=== PATIENT | male | born 1955 | race Caucasian/White ===

== ENCOUNTER 2019-03-01 08:15 | Observation (INO) | payer OTHER ==
[~2019-03-01] VITALS: Ht 170.2 cm; Wt 89.8 kg
[~2019-03-01 08:15] MED LIST: ASPI81EC PO; BCOIRO PO; CYCL10 PO; DOCU100 PO; FLUO20 PO; GABA100 PO; GEMF600 PO; HYDACE10B PO; LORA10 PO; LOSHYD PO; MECL25 PO; MOME220I IH; NAPR250 PO; OMEP20ER PO; PRAZ2 PO; ROPI.25 PO; VARDENAFIL HCL
[2019-03-01] MEDS ORDERED: COMBIVENT RESPIM4 GM INH (08:49)
[2019-03-01] MEDS ORDERED: ATOR10 PO (08:50)
[2019-03-01] MEDS ORDERED: BUPR150ER PO (08:51)
[2019-03-01] MEDS ORDERED: FERSU300 PO (08:52)
[2019-03-01] MEDS ORDERED: FENOFIBRATE48 MG PO (08:52)
[2019-03-01] MEDS ORDERED: DOCU100 PO (08:52)
[2019-03-01] MEDS ORDERED: Calcium Carbon650 MG PO (08:52)
[2019-03-01 08:53] LABS: BASOPHILS ABSOLUTE AUTO 0.04 K/mm3 (0.00-0.23); BASOPHILS PERCENT AUTO 1 % (0-2); EOSINOPHILS ABSOLUTE AUTO 0.22 K/mm3 (0.00-0.68); EOSINOPHILS PERCENT AUTO 4 % (0-6); Hematocrit 40.3 % (37.0-53.0); Hemoglobin 12.9 g/dL (13.5-17.5); IMMATURE GRAN ABSOLUTE AUTO 0.02 K/mm3 (0.00-0.10); IMMATURE GRAN PERCENT AUTO 0 % (0-1); LYMPHOCYTES ABSOLUTE AUTO 1.57 K/mm3 (0.84-5.20); LYMPHOCYTES PERCENT AUTO 25 % (21-46); MONOCYTES ABSOLUTE AUTO 0.53 K/mm3 (0.16-1.47); MONOCYTES PERCENT AUTO 8 % (4-13); Mean Corpuscular HGB 29.9 pg (26.0-34.0); Mean Corpuscular Volume 94 fL (80-100); Mean Platelet Volume 9.4 fL (9.1-12.4); NEUTROPHILS PERCENT AUTO 62 % (41-73); Platelet Count 218 K/mm3 (150-400); RDW Coefficient Variation 13.5 % (11.7-14.2); RDW Standard Deviation 46.6 fL (35.1-46.3); Red Blood Cell Count 4.31 M/mm3 (4.30-5.90); White Blood Cell Count 6.28 K/mm3 (4.00-11.30)
[2019-03-01] MEDS ORDERED: Flonase 0.05% N16 GM (08:53)
[2019-03-01] MEDS ORDERED: GABA300 PO (08:53)
[2019-03-01] MEDS ORDERED: LOSARTAN-HCTZ1 EACH PO ×2 (08:54→11:46)
[2019-03-01] MEDS ORDERED: Hydroxyzine HCl50 MG PO (08:54)
[2019-03-01] MEDS ORDERED: METF500 PO (08:55)
[2019-03-01] MEDS ORDERED: CLARITIN10 MG PO (08:55)
[2019-03-01] MEDS ORDERED: OMEPRAZOLE20 MG PO (08:55)
[2019-03-01] MEDS ORDERED: ROPI.25 PO (08:56)
[2019-03-01] MEDS ORDERED: SERT100 PO (08:56)
[2019-03-01] MEDS ORDERED: SILD50TA PO (08:56)
[2019-03-01] MEDS ORDERED: SINUS RINSE ST1 EACH (08:57)
[2019-03-01] MEDS ORDERED: TAMS.4ER PO (08:57)
[2019-03-01 09:08] LABS: International Normalized Ratio 0.98; Prothrombin Time Results 10.4 Sec (9.7-11.5)
[2019-03-01 09:15] LABS: Alanine Aminotransfer (ALT/SGP 19 U/L (12-78); Albumin, Blood 3.5 g/dL (3.4-5.0); Alk Phos 78 U/L (50-136); Anion Gap 4 mmol/L (6-16); Aspartate Aminotrans (AST/SGOT 15 U/L (12-37); Bilirubin, Total 0.2 mg/dL (0.1-1.0); Blood Urea Nitrogen 12 mg/dL (8-24); CO2, Blood 29 mmol/L (21-32); Calcium, Blood 9.2 mg/dL (8.5-10.1); Chloride, Blood 105 mmol/L (98-108); Creatinine, Blood 0.86 mg/dL (0.60-1.20); Globulin, Blood 3.6 g/dL (2.2-4.0); Glomerular Filtration Rate >60 (60-); Glucose, Blood 189 mg/dL (70-99); Sodium, Blood 138 mmol/L (136-145); Total Protein, Blood 7.1 g/dL (6.4-8.2)
[2019-03-01] MEDS ORDERED: Norco 10-325 T1 EACH PO (11:46)
--- NOTE | 2019-03-01 13:48 | NUR ---
Echocardiogram completed.
--- NOTE | 2019-03-01 14:01 | NUR ---
PT TO ROOM FROM ED. SHOWS NO SIGNS OF WEAKNESS. STRONG BILAT [employer] STRENGTH AND FOOT PUMPS. PERRLA. REPORTS NO FEELING OF WEAKNESS, NO N/T, SOB, OR CP. PT ORIENTED TO AND CALL LIGHT. PT A/OX4.
--- NOTE | 2019-03-01 17:46 | NUR ---
SHIFT SUMMARY PT TO SURGICAL FLOOR TODAY FROM ER. HAS REPORTED NO PAIN OR OTHER UNUSUAL SYMPTOMS. PT IND IN RM. WORKED WITH OT TODAY. OT REPORTS NO CONCERNS. PT TOLERATING FOOD AND LIQUIDS AND IS VOIDING. BEEN ASSISTED WITH ADL'S PRN.
[2019-03-02 05:29] LABS: LDL/HDL RATIO 2.2; Very Low Density Lipoprot Chol 39 mg/dL (6-32)
[2019-03-02 05:30] LABS: CHOL/HDL RATIO 4.5; Cholesterol 135 mg/dL (50-200); HDL Cholesterol 30 mg/dL (>39); Low Density Lipoprotein Chol 66 mg/dL (0-110); Triglycerides 195 mg/dL (30-160)
--- NOTE | 2019-03-02 06:04 | NUR ---
PT A/O x4. VSS. No complaints of pain or weakness. Patient states "I feel much better than earlier" Slept comfortably throughout night. Medicated as ordered.
--- NOTE | 2019-03-02 07:45 | NUR ---
pt amb in hallway with physical therapy
--- NOTE | 2019-03-02 07:50 | NUR ---
pt done with therapy sitting on edge of the bed stated no h/a no facial droop no r sided weakness + neuro check pt wanting to know if he can go home
--- NOTE | 2019-03-02 08:34 | NUR ---
pt eating breakfast meds given as sched
--- NOTE | 2019-03-02 10:58 | NUR ---
speech therapy by to see pt
--- NOTE | 2019-03-02 12:15 | NUR ---
dr koo by to see pt ok to discharge home
[2019-03-02] MEDS ORDERED: ASPI81CH PO (12:41)
--- NOTE | 2019-03-02 13:15 | NUR ---
DISCAHRGE INSTRUCTIONS REVIEWED WITH PT VERBALIZED RX GIVEN NO ACUTE CHANGES
--- NOTE | 2019-03-02 13:20 | NUR ---
AMB TO [facility]
== END 2019-03-02 13:28 | disposition home or self-care (01) ==
LOC: ER 08:15 → SURS 08:16
PROVIDERS: Nurse Practitioner Acute Care; Physician Assistant; ADMIT Hospitalist
DX: G45.9 Transient cerebral ischemic attack, unspecified (principal); I10 Essential (primary) hypertension; E11.9 Type 2 diabetes mellitus without complications; J44.9 Chronic obstructive pulmonary disease, unspecified; K21.9 Gastro-esophageal reflux disease without esophagitis; D50.9 Iron deficiency anemia, unspecified; N40.0 Benign prostatic hyperplasia without lower urinary tract symptoms; G25.81 Restless legs syndrome; F41.1 Generalized anxiety disorder; F32.9 Major depressive disorder, single episode, unspecified; F17.210 Nicotine dependence, cigarettes, uncomplicated; Z86.73 Personal history of transient ischemic attack (TIA), and cerebral infarction without residual deficits; Z79.899 Other long term (current) drug therapy; Z79.51 Long term (current) use of inhaled steroids; Z88.8 Allergy status to other drugs, medicaments and biological substances; Z88.5 Allergy status to narcotic agent; Z98.890 Other specified postprocedural states; W19.XXXA Unspecified fall, initial encounter
CPT/HCPCS: 36415; 70450; 70496; 70498; 80053; 80061; 82607; 82947; 85025; 85610; 92610; 93005; 93010; 93306; 96360-59; 96372; 97110; 97161; 97165; 97530; 99285-25; G0378; J1650; J7030; Q9967

== ENCOUNTER 2020-02-06 08:19 | Emergency (ER) | payer OTHER ==
[~2020-02-06] VITALS: Ht 170.2 cm; Wt 88.5 kg
[~2020-02-06 08:19] MED LIST changes: +ASPI81CH PO; +ATOR10 PO; +BUPR150ER PO; +CLARITIN10 MG PO; +COMBIVENT RESPIM4 GM INH; +Calcium Carbon650 MG PO; +FENOFIBRATE48 MG PO; +FERSU300 PO; +Flonase 0.05% N16 GM; +GABA300 PO; +Hydroxyzine HCl50 MG PO; +LOSARTAN-HCTZ1 EACH PO; +METF500 PO; +Norco 10-325 T1 EACH PO; +OMEPRAZOLE20 MG PO; +SERT100 PO; +SILD50TA PO; +SINUS RINSE ST1 EACH; +TAMS.4ER PO
[2020-02-06] MEDS ORDERED: COMBIVENT RESPIM4 G1 (08:44)
[2020-02-06] MEDS ORDERED: CYAN500 PO (08:45)
[2020-02-06] MEDS ORDERED: ASPI81CH PO (08:45)
[2020-02-06] MEDS ORDERED: ATOR20 PO (08:45)
[2020-02-06] MEDS ORDERED: BUPR150ER PO (08:45)
[2020-02-06] MEDS ORDERED: DOCU100 PO (08:48)
[2020-02-06] MEDS ORDERED: FENO48 PO (08:50)
[2020-02-06] MEDS ORDERED: FERSU300 PO (08:50)
[2020-02-06] MEDS ORDERED: GABA300 PO (08:51)
[2020-02-06] MEDS ORDERED: FLONASE SENSIM5.9 M1 (08:51)
[2020-02-06] MEDS ORDERED: LOSARTAN-HCTZ1 EAC3 PO (08:52)
[2020-02-06] MEDS ORDERED: HYDR1TAB94 PO (08:53)
[2020-02-06] MEDS ORDERED: HYDPAM50 PO (08:53)
[2020-02-06] MEDS ORDERED: OMEP20ER PO (08:54)
[2020-02-06] MEDS ORDERED: METF500 PO (08:54)
[2020-02-06] MEDS ORDERED: CENTRUM SILVER1 EAC2 (08:54)
[2020-02-06] MEDS ORDERED: Loratadine10 MG PO (08:54)
[2020-02-06] MEDS ORDERED: ROPI.25 PO (08:55)
[2020-02-06] MEDS ORDERED: SILD50TA PO (08:55)
[2020-02-06] MEDS ORDERED: TAMS.4ER PO (08:55)
[2020-02-06] MEDS ORDERED: KETO10 PO (09:14)
== END 2020-02-06 10:23 | disposition home or self-care (01) ==
LOC: ER 08:19
DX: S29.011A Strain of muscle and tendon of front wall of thorax, initial encounter (principal); I10 Essential (primary) hypertension; E78.00 Pure hypercholesterolemia, unspecified; J44.9 Chronic obstructive pulmonary disease, unspecified; N40.0 Benign prostatic hyperplasia without lower urinary tract symptoms; E11.40 Type 2 diabetes mellitus with diabetic neuropathy, unspecified; K21.9 Gastro-esophageal reflux disease without esophagitis; F17.210 Nicotine dependence, cigarettes, uncomplicated; Z79.899 Other long term (current) drug therapy; Z79.82 Long term (current) use of aspirin; Z79.84 Long term (current) use of oral hypoglycemic drugs; Z88.5 Allergy status to narcotic agent; Z88.8 Allergy status to other drugs, medicaments and biological substances; Z86.73 Personal history of transient ischemic attack (TIA), and cerebral infarction without residual deficits; X50.0XXA Overexertion from strenuous movement or load, initial encounter
CPT/HCPCS: 36415; 84484; 93005; 93010; 96374; 99284-25; J1885

== ENCOUNTER 2020-03-16 16:16 | Inpatient (IN) | payer OTHER, MEDICARE ==
[~2020-03-16] VITALS: Ht 170.2 cm; Wt 83.0 kg
[~2020-03-16 16:16] MED LIST changes: +ATOR20 PO; +Aspirin EC81 MG PO; +COMBIVENT RESPIM4 G1; +CYAN500 PO; +FENO48 PO; +FLONASE ALLERG9.9 M2; +HYDPAM50 PO; +HYDR1TAB94 PO; +KETO10 PO; +LOSARTAN-HCTZ1 EAC3 PO; +Loratadine10 MG PO; +MULTI VITAMIN1 EACH PO
[2020-03-16 17:09] LABS: BASOPHILS ABSOLUTE AUTO 0.08 K/mm3 (0.00-0.23); BASOPHILS PERCENT AUTO 1 % (0-2); EOSINOPHILS ABSOLUTE AUTO 0.09 K/mm3 (0.00-0.68); EOSINOPHILS PERCENT AUTO 1 % (0-6); Hematocrit 47.2 % (37.0-53.0); Hemoglobin 14.4 g/dL (13.5-17.5); IMMATURE GRAN ABSOLUTE AUTO 0.05 K/mm3 (0.00-0.10); IMMATURE GRAN PERCENT AUTO 0 % (0-1); LYMPHOCYTES ABSOLUTE AUTO 1.08 K/mm3 (0.84-5.20); LYMPHOCYTES PERCENT AUTO 8 % (21-46); MONOCYTES ABSOLUTE AUTO 0.82 K/mm3 (0.16-1.47); MONOCYTES PERCENT AUTO 6 % (4-13); Mean Corpuscular HGB 30.8 pg (26.0-34.0); Mean Corpuscular HGB Conc 30.5 g/dL (31.5-36.5); Mean Corpuscular Volume 101 fL (80-100); Mean Platelet Volume 9.9 fL (9.1-12.4); NEUTROPHILS ABSOLUTE AUTO 10.88 K/mm3 (1.96-9.15); NEUTROPHILS PERCENT AUTO 84 % (41-73); Platelet Count 278 K/mm3 (150-400); RDW Coefficient Variation 14.3 % (11.7-14.2); RDW Standard Deviation 52.6 fL (35.1-46.3); Red Blood Cell Count 4.68 M/mm3 (4.30-5.90)
[2020-03-16 17:23] LABS: Alanine Aminotransfer (ALT/SGP 36 U/L (12-78); Albumin/Globulin Ratio 1.1 (0.8-1.8); Alk Phos 85 U/L (50-136); Anion Gap 11 mmol/L (6-16); Aspartate Aminotrans (AST/SGOT 25 U/L (12-37); Bilirubin, Total 0.4 mg/dL (0.1-1.0); Blood Urea Nitrogen 22 mg/dL (8-24); Bun/Creatinine Ratio 22.4 (12.0-20.0); CO2, Blood 20 mmol/L (21-32); Calcium, Blood 9.6 mg/dL (8.5-10.1); Chloride, Blood 109 mmol/L (98-108); Creatinine, Blood 0.98 mg/dL (0.60-1.20); Globulin, Blood 3.8 g/dL (2.2-4.0); Glomerular Filtration Rate >60 (60-); Glucose, Blood 189 mg/dL (70-99); Potassium, Blood 4.4 mmol/L (3.5-5.5); Sodium, Blood 140 mmol/L (136-145); Total Protein, Blood 7.8 g/dL (6.4-8.2)
[2020-03-16 20:45] LABS: International Normalized Ratio 1.02; Prothrombin Time Results 10.9 Sec (9.7-11.5)
--- NOTE | 2020-03-17 04:13 | NUR ---
SHIFT SUMMARY ASSUMED CARE OF PT AT 2230. PT IS A/OX4, STATES HE HAS NUMBNESS IN RLE. R LEG IS SLIGHTLY COOLER THAN L. PT RECEIVING HEPRIN FROM ED. TELE SHOWING SINUS @ 73. PT IS NPO AFTER BREAKFAST. PT USES URINAL AT BEDSIDE. PT C/O DIARRHEA ON ADMISSION BUT HAD NON THIS SHIFT. PT SLEPT WELL, CALL LIGHT IN REACH, BED IN LOWEST POSTION.
[2020-03-17 05:29] LABS: BASOPHILS ABSOLUTE AUTO 0.03 K/mm3 (0.00-0.23); BASOPHILS PERCENT AUTO 0 % (0-2); EOSINOPHILS ABSOLUTE AUTO 0.24 K/mm3 (0.00-0.68); EOSINOPHILS PERCENT AUTO 3 % (0-6); IMMATURE GRAN ABSOLUTE AUTO 0.04 K/mm3 (0.00-0.10); IMMATURE GRAN PERCENT AUTO 1 % (0-1); LYMPHOCYTES PERCENT AUTO 26 % (21-46); MONOCYTES ABSOLUTE AUTO 0.59 K/mm3 (0.16-1.47); MONOCYTES PERCENT AUTO 7 % (4-13); Mean Corpuscular HGB 30.1 pg (26.0-34.0); Mean Corpuscular HGB Conc 31.6 g/dL (31.5-36.5); Mean Platelet Volume 9.8 fL (9.1-12.4); NEUTROPHILS ABSOLUTE AUTO 5.16 K/mm3 (1.96-9.15); NEUTROPHILS PERCENT AUTO 63 % (41-73); Platelet Count 269 K/mm3 (150-400); RDW Standard Deviation 49.2 fL (35.1-46.3); Red Blood Cell Count 3.99 M/mm3 (4.30-5.90); White Blood Cell Count 8.16 K/mm3 (4.00-11.30)
[2020-03-17 05:38] LABS: Mean Corpuscular Volume 95 fL (80-100)
[2020-03-17 06:01] LABS: Alanine Aminotransfer (ALT/SGP 28 U/L (12-78); Albumin, Blood 3.3 g/dL (3.4-5.0); Alk Phos 71 U/L (50-136); Anion Gap 5 mmol/L (6-16); Aspartate Aminotrans (AST/SGOT 15 U/L (12-37); Bilirubin, Total 0.2 mg/dL (0.1-1.0); Blood Urea Nitrogen 24 mg/dL (8-24); CO2, Blood 29 mmol/L (21-32); Calcium, Blood 8.6 mg/dL (8.5-10.1); Chloride, Blood 107 mmol/L (98-108); Globulin, Blood 3.4 g/dL (2.2-4.0); Glomerular Filtration Rate >60 (60-); Glucose, Blood 152 mg/dL (70-99); Potassium, Blood 3.7 mmol/L (3.5-5.5); Sodium, Blood 141 mmol/L (136-145); Total Protein, Blood 6.7 g/dL (6.4-8.2)
--- NOTE | 2020-03-17 16:00 | NUR ---
SHIFT SUMMARY NO ACUTE CHANGES T/O SHIFT. A&Ox4, SINUS RHYTHM @ 75, HEPARIN DRIP STILL CURRENTLY RUNNING. HEPARIN DRIP WAS ADJUSTED ONCE DURING SHIFT. PT STATED HE WAS EXPERIENCING SOME PAIN AND NUMBNESS IN HIS RIGHT LEG TODAY AND WAS TREATED PER EMAR. RIGHT LEG IS STILL WARM TO THE TOUCH AND APPEARS TO BE RECIEVING GOOD BLOOD FLOW. CALLED [facility] REGARDING [facility] NOT BEING ABLE TO COME FOR A CONSULT UNTIL THURSDAY UNLESS THIS IS AN EMERGENT CASE. [facility] AND [facility] ALSO HAD A CONVERSATION, AND CONFIRMED THAT THIS IS NOT AN EMERGENT CASE AND THE [facility] WILL COME IN THURSDAY.
--- NOTE | 2020-03-18 04:54 | NUR ---
SHIFT SUMMARY ASSUMED CARE OF PT AT 1900. PT IS A/OX4, STATES THE NUMBNESS IN HIS R LEG IS DOING BETTER THAN YESTERDAY. PT STILL C/O PAIN IN R HIP, MEDICATION PER EMAR. PT USES URINAL AT BEDSIDE. NO ACUTE EVENTS DURING THE NIGHT. PT SLEPT T/O THE NIGHT. CALL LIGHT IN REACH, BED IN LOWEST POSITION.
--- NOTE | 2020-03-18 16:05 | NUR ---
PT IS A/OX3, PLEASANT AND COOPERATIVE, THE PT IS UP IND IN HIS ROOM, THE PT APPEARS TO BE BREATHING EASILY AT THIS TIME, THE PT WAS MEDICATED FOR PAIN X1 SO FAR THIS SHIFT, THE PT WAS MEDICATED FOR NAUSEA AND DIARRHEA X1, THE PT REPORTED THAT HIS TOES, FELT NUMB AT TIMES, BUT THEN WOULD GO AWAY INTERMITTANTLY, PT IS ON A HEPRIN GTT, TOLERATING WELL, CALL LIGHT IN REACH, WILL CONTINUE TO MONITOR AND ASSESS FOR CHANGES
--- NOTE | 2020-03-19 04:35 | NUR ---
SHIFT SUMMARY NO ACUTE CHANGES TO REPORT THIS SHIFT. PT HAS RESTED MOST OF THE NIGHT. PT STATES THAT HE STILL HAS NUMBESS DOWN HIS RIGHT LEG, BUT HAS DENIED PAIN IN HIS LEG THIS SHIFT. HEPARIN GTT CONTINUED PER ORDERS. PT IS STILL REPORTING DIARRHEA, THAT IS RELIVED WITH IMODIUM. PT STILL AWAITING CONSULT WITH DR. MCKENNA AT THIS TIME. HE HAS BEEN INDEPENDENT IN THE ROOM. BED IN LOWEST POSITION, CALL LIGHT WITHIN REACH.
--- NOTE | 2020-03-19 16:54 | NUR ---
PT IS A&O X4 AND HAS HAD NO ACUTE CHANGES AT THIS TIME. HE HAS BEEN TREATED FOR PAIN X2 PER EMAR. PT USES CALL LIGHT APPROPRIETLY WHEN NEEDED. HE HAS BEEN ON HEPARIN GTT PER EMAR. PT IS INDEPENDENT IN ROOM AND COMFORTABLE. BED IS IN THE LOWESST POSITION AND CALL LIGHT IS WITHIN REACH.
--- NOTE | 2020-03-19 18:01 | NUR ---
PLEASE REFER TO SHIFT SUMMARY IN STUDENT NOTE.
[2020-03-19 18:23] LABS: Mean Platelet Volume 9.4 fL (9.1-12.4); Platelet Count 258 K/mm3 (150-400)
--- NOTE | 2020-03-20 07:17 | NUR ---
SHIFT SUMMARY PATIENT ALERT AND ORIENTED. VERY PLEASANT TO WORK WITH. WAS ABLE TO SLEEP WELL OVERNIGHT. MEDICATED PER EMAR FOR PAIN. IV PATENT AND INFUSING. BED IN LOWEST POSITION WITH WHEELS LOCKED. CALL LIGHT WITHIN REACH. REPORT GIVEN TO ONCOMING RN.
--- NOTE | 2020-03-20 10:00 | NUR ---
REPORT GIVEN TO [facility] PCU. PATIENT TO HEART CENTER AROUND 9AM. ANSWER ALL QUESTIONS. WILL BRING ANY BELONGINGS TO [facility].
--- NOTE | 2020-03-20 10:02 | NUR ---
REPORT RECIEVED REPORT RECIEVED FROM MEDICAL FLOOR RN. PT CURRENTLY AT [facility].
--- NOTE | 2020-03-20 13:11 | NUR ---
ARRIVAL TO UNIT PT ARRIVED TO UNIT AT 1120. VS STABLE. RADIAL AND FEMORAL SITE WNL. HEPARIN RE-STARTED AFTER VERIFICATION W/PHARMACY.
--- NOTE | 2020-03-20 16:14 | NUR ---
POST OP PT HOB INCREASED Q 15 MIN BY 15 DEGREES. RADIAL AND FEMORAL SITE WNL. DRESSING C/D/I. NO HEMATOMA FORMATION. TR BAND DEFLATED BY 2 ML Q 15 MIN. SITE WITHIN NORMAL LIMITS. BP REMAINED STABLE. HR REMAINED STABLE. BY 4.5 HRS POST TR BAND PLACEMENT, PT AMBULATING IN ROOM WITH ASSISTANCE. RADIAL AND FEMORAL SITES REMAIN WNL AND DRESSINGS C/D/I.
--- NOTE | 2020-03-20 17:59 | NUR ---
SHIFT SUMMARY PT ARRIVED FROM HEART CENTER. Q 15 MIN VITALS TAKEN FOR 1 HR. Q 30 MIN VITALS TAKEN FOR ONE HOUR. BP AND HR REMAIN STABLE. OXYGEN SATURATION MAINTAINED ABOVE 92% ON RA. HOB INCREASED 15 DEGREES, Q 15 MIN AFTER 4 HRS OR BR, PT ABLE TO AMBULATE IN ROOM AFTER 4 HRS OF BR. DRESSING AND SITE REMAINED FREE FROM HEMATOMA FORMATION AND DRESSING REMAINED C/D/I. HR REMAINED STABLE. PT REPORTS PAIN IN THE R LEG. MEDICATION GIVEN PER EMAR. PT REPORTS PAIN RELIEF. TR BAND DEFLATED 4 HRS AFTER APPLICATION. 2 ML OF AIR REMOVED Q 15 MIN. SITE REMAINS FREE OF HEMATOMA FORMATION. DRESSING C/D/I. PT REMAINS ALERT AND ORIENTED X4. WILL CONTINUE TO MONITOR UNTIL REPORT GIVEN TO NIGHTSHIFT RN.
--- NOTE | 2020-03-21 05:29 | NUR ---
SHIFT SUMMARY PT SLEEPING IN ROOM COMFORTABLY AT THIS TIME. NO ACUTE CHANGES ESTEPHANIA STATUS T/O NIGHT. PT SLEPT WELL AND DENIED ANY CP OR SOB T/O NIGHT. PT DENIED OTHER NEEDS. ANGIO SITE IN L WRIST AND L FEMORAL WNL NO HEMATOMAS NOTED. PT ABLE TO AMBULATE IN ROOM W/O ASSIST INDEPENDENTLY. HEPARIN GTT INFUSING IN PIV PER PHARMACY. CALL LIGHT IN REACH. PT MADE NPO AT MIODNIGHT FOR STRESS TEST TODAY.
--- NOTE | 2020-03-21 07:30 | NUR ---
ASSUMED PATIENT CARE. PATIENT RESTING COMFORTABLY IN BED AFTER INDEPENDENT AMBULATION TO BATHROOM. NO SIGNS OF BLEEDING OR HEMATOMA AT GROIN/RADIAL SITES, PATIENT DENIES CHEST PAIN. NO SIGNS OF ACUTE DISTRESS, WCTM.
[2020-03-21] MEDS ORDERED: LOPE2C PO (13:11)
[2020-03-21] MEDS ORDERED: XARELTO20 MG PO (13:11)
--- NOTE | 2020-03-21 18:51 | NUR ---
NO ACUTE EVENTS THIS SHIFT. GROIN/RADIAL SITES SHOW NO NEW DISCHARGE, NON TENDER, NO HEMATOMA. PATIENT ABLET TO AMBULATE INDEPENDENTLY IN ROOM, NSR, MELINDA CHEST PAIN THIS SHIFT. PATIENT COMPLAINS OF CONTINUED PAIN IN RLE PRESENT PRIOR TO ADMISSION. PLAN IS FOR PATIENT TO START ON PLAVIX/XARELTO ON DISCHARGE AND TO FOLLOW UP WITH VASCULAR SURG IN [place] ON THURSDAY.
[2020-03-21] MEDS ORDERED: CLOP75 PO (19:27)
--- NOTE | 2020-03-21 19:51 | NUR ---
PATIENT PROVIDED DISCHARGE INFO REGARDING RADIAL/GROIN ANGIO SITE CARE, REASONS TO RETURN TO THE HOSPITAL, MEDICATION INFO, AND FOLLOW UP PLANS. PATIENT VERBALIZED UNDERSTANDING, NO SIGNS OF ACUTE DISTRESS.
== END 2020-03-21 20:55 | disposition home or self-care (01) | DRG 301 ==
LOC: ER 16:16 → MEDS 16:19 → PCU 16:19 → MEDS 16:19 → PCU 03-20 10:00
PROVIDERS: Emergency Medicine; ADMIT Internal Medicine
PROC: B41D1ZZ Fluoroscopy of Aorta and Bilateral Lower Extremity Arteries using Low Osmolar Contrast (ICD-10-PCS; principal; 2020-03-20)
DX: E11.51 Type 2 diabetes mellitus with diabetic peripheral angiopathy without gangrene (principal); I10 Essential (primary) hypertension; R20.2 Paresthesia of skin; Z79.82 Long term (current) use of aspirin; F17.210 Nicotine dependence, cigarettes, uncomplicated; K21.9 Gastro-esophageal reflux disease without esophagitis; G25.81 Restless legs syndrome; J44.9 Chronic obstructive pulmonary disease, unspecified; E78.5 Hyperlipidemia, unspecified; I77.1 Stricture of artery; F32.9 Major depressive disorder, single episode, unspecified; I70.0 Atherosclerosis of aorta; Z86.73 Personal history of transient ischemic attack (TIA), and cerebral infarction without residual deficits; Z79.84 Long term (current) use of oral hypoglycemic drugs
CPT/HCPCS: 36140; 36200; 36415; 72131; 75625; 75716; 76937; 78452; 80053; 82947; 85025; 85049; 85610; 85730; 93017; 93926; 96374; 96375; 99152; 99153; 99285-25; A9270-GY; A9500; C1769; C1887; C1894; J0706; J1644; J2250; J2270; J2405; J2785; J3010; J7030; Q9967

== ENCOUNTER 2020-05-14 13:48 | Emergency (ER) | payer OTHER ==
[~2020-05-14] VITALS: Ht 170.2 cm; Wt 73.0 kg
[~2020-05-14 13:48] MED LIST changes: +CLOP75 PO; +LOPE2C PO; +XARELTO20 MG PO
[2020-05-14] MEDS ORDERED: Norco 7.5-3251 EACH PO (15:57)
== END 2020-05-14 16:10 | disposition home or self-care (01) ==
LOC: ER 13:48
DX: S93.401A Sprain of unspecified ligament of right ankle, initial encounter (principal); E11.9 Type 2 diabetes mellitus without complications; K21.9 Gastro-esophageal reflux disease without esophagitis; I10 Essential (primary) hypertension; J44.9 Chronic obstructive pulmonary disease, unspecified; F17.210 Nicotine dependence, cigarettes, uncomplicated; Z79.899 Other long term (current) drug therapy; Z79.02 Long term (current) use of antithrombotics/antiplatelets; Z79.01 Long term (current) use of anticoagulants; Z79.84 Long term (current) use of oral hypoglycemic drugs; Z79.82 Long term (current) use of aspirin; Z88.5 Allergy status to narcotic agent; Z88.8 Allergy status to other drugs, medicaments and biological substances; Z86.73 Personal history of transient ischemic attack (TIA), and cerebral infarction without residual deficits; Z86.718 Personal history of other venous thrombosis and embolism; X50.1XXA Overexertion from prolonged static or awkward postures, initial encounter
CPT/HCPCS: 29515; 73610; 99283-25

== ENCOUNTER 2020-06-04 18:34 | Emergency (ER) | payer OTHER ==
[~2020-06-04] VITALS: Ht 167.6 cm; Wt 81.7 kg
[~2020-06-04 18:34] MED LIST changes: +Norco 7.5-3251 EACH PO
[2020-06-04] MEDS ORDERED: Mupirocin22 GM TOP (20:04)
== END 2020-06-04 20:25 | disposition home or self-care (01) ==
LOC: ER 18:34
DX: R60.0 Localized edema (principal); L98.8 Other specified disorders of the skin and subcutaneous tissue; E11.9 Type 2 diabetes mellitus without complications; K21.9 Gastro-esophageal reflux disease without esophagitis; I10 Essential (primary) hypertension; J44.9 Chronic obstructive pulmonary disease, unspecified; F17.210 Nicotine dependence, cigarettes, uncomplicated; Z79.82 Long term (current) use of aspirin; Z79.899 Other long term (current) drug therapy; Z79.84 Long term (current) use of oral hypoglycemic drugs; Z79.01 Long term (current) use of anticoagulants; Z88.5 Allergy status to narcotic agent; Z88.8 Allergy status to other drugs, medicaments and biological substances; Z79.02 Long term (current) use of antithrombotics/antiplatelets
CPT/HCPCS: 93971; 99284-25; A9270

== ENCOUNTER 2020-06-27 11:52 | Emergency (ER) | payer OTHER, MEDICARE ==
[~2020-06-27] VITALS: Ht 170.2 cm; Wt 77.1 kg
[~2020-06-27 11:52] MED LIST changes: +Mupirocin22 GM TOP
[2020-06-27] MEDS ORDERED: PANT40 PO (12:12)
[2020-06-27] MEDS ORDERED: PROC5 PO (12:12)
[2020-06-27 13:07] LABS: BASOPHILS ABSOLUTE AUTO 0.09 K/mm3 (0.00-0.23); BASOPHILS PERCENT AUTO 1 % (0-2); EOSINOPHILS ABSOLUTE AUTO 0.29 K/mm3 (0.00-0.68); EOSINOPHILS PERCENT AUTO 4 % (0-6); Hematocrit 35.8 % (37.0-53.0); Hemoglobin 11.4 g/dL (13.5-17.5); IMMATURE GRAN ABSOLUTE AUTO 0.02 K/mm3 (0.00-0.10); IMMATURE GRAN PERCENT AUTO 0 % (0-1); LYMPHOCYTES ABSOLUTE AUTO 1.74 K/mm3 (0.84-5.20); LYMPHOCYTES PERCENT AUTO 24 % (21-46); MONOCYTES ABSOLUTE AUTO 0.42 K/mm3 (0.16-1.47); MONOCYTES PERCENT AUTO 6 % (4-13); Mean Corpuscular HGB 29.8 pg (26.0-34.0); Mean Corpuscular HGB Conc 31.8 g/dL (31.5-36.5); Mean Corpuscular Volume 94 fL (80-100); Mean Platelet Volume 9.5 fL (9.1-12.4); NEUTROPHILS ABSOLUTE AUTO 4.56 K/mm3 (1.96-9.15); NEUTROPHILS PERCENT AUTO 64 % (41-73); Platelet Count 503 K/mm3 (150-400); RDW Standard Deviation 51.5 fL (35.1-46.3); Red Blood Cell Count 3.83 M/mm3 (4.30-5.90); White Blood Cell Count 7.12 K/mm3 (4.00-11.30)
[2020-06-27 13:40] LABS: Alanine Aminotransfer (ALT/SGP 12 U/L (12-78); Albumin/Globulin Ratio 0.9 (0.8-1.8); Alk Phos 79 U/L (50-136); Anion Gap 6 mmol/L (6-16); Aspartate Aminotrans (AST/SGOT 10 U/L (12-37); Bilirubin, Total 0.2 mg/dL (0.1-1.0); Blood Urea Nitrogen 14 mg/dL (8-24); Bun/Creatinine Ratio 22.7 (12.0-20.0); CO2, Blood 30 mmol/L (21-32); Calcium, Blood 9.3 mg/dL (8.5-10.1); Chloride, Blood 103 mmol/L (98-108); Creatinine, Blood 0.62 mg/dL (0.60-1.20); Globulin, Blood 3.5 g/dL (2.2-4.0); Glomerular Filtration Rate >60 (60-); Glucose, Blood 124 mg/dL (70-99); Sodium, Blood 139 mmol/L (136-145); Total Protein, Blood 6.5 g/dL (6.4-8.2)
[2020-06-27 14:51] LABS: Source, Urine Voided
[2020-06-27 14:54] LABS: Appearance, Urine Clear (Clear); Bilirubin, Urine Neg (Neg); Blood, Urine Neg (Neg); Color, Urine Yellow (P-Yellow); Glucose Qualitative, Urine Neg (Neg); Ketones, Urine Neg (Neg); Leukocyte Esterase, Urine Neg (Neg); Nitrite, Urine Neg (Neg); Protein, Urine Neg (Neg); Specific Gravity, Urine 1.015 (1.003-1.022); Urobilinogen, Urine NORM (Normal); pH, Urine 6.5 (5.0-8.0)
== END 2020-06-27 16:32 | disposition home or self-care (01) ==
LOC: ER 11:52
PROVIDERS: Emergency Medicine
DX: R10.9 Unspecified abdominal pain (principal); R19.7 Diarrhea, unspecified; Z79.02 Long term (current) use of antithrombotics/antiplatelets; Z79.84 Long term (current) use of oral hypoglycemic drugs; Z79.899 Other long term (current) drug therapy; Z87.891 Personal history of nicotine dependence; Z86.73 Personal history of transient ischemic attack (TIA), and cerebral infarction without residual deficits
CPT/HCPCS: 74177; 80053; 81003; 83690; 85025; 87015; 87045; 87046; 87205; 87493; 87899; 93005; 93010; 96374; 96375; 99285-25; J2270; J2405; J7030; Q9967

== ENCOUNTER 2020-07-03 18:34 | Emergency (ER) | payer OTHER, MEDICARE ==
[~2020-07-03] VITALS: Ht 170.2 cm; Wt 63.5 kg
[~2020-07-03 18:34] MED LIST changes: +PANT40 PO; +PROC5 PO
[2020-07-03 19:01] LABS: BASOPHILS PERCENT AUTO 1 % (0-2); EOSINOPHILS ABSOLUTE AUTO 0.17 K/mm3 (0.00-0.68); EOSINOPHILS PERCENT AUTO 2 % (0-6); Hematocrit 40.6 % (37.0-53.0); Hemoglobin 13.3 g/dL (13.5-17.5); IMMATURE GRAN ABSOLUTE AUTO 0.02 K/mm3 (0.00-0.10); IMMATURE GRAN PERCENT AUTO 0 % (0-1); LYMPHOCYTES ABSOLUTE AUTO 2.81 K/mm3 (0.84-5.20); LYMPHOCYTES PERCENT AUTO 32 % (21-46); MONOCYTES ABSOLUTE AUTO 0.68 K/mm3 (0.16-1.47); MONOCYTES PERCENT AUTO 8 % (4-13); Mean Corpuscular HGB 29.9 pg (26.0-34.0); Mean Corpuscular HGB Conc 32.8 g/dL (31.5-36.5); Mean Corpuscular Volume 91 fL (80-100); Mean Platelet Volume 9.5 fL (9.1-12.4); NEUTROPHILS ABSOLUTE AUTO 4.99 K/mm3 (1.96-9.15); NEUTROPHILS PERCENT AUTO 57 % (41-73); Platelet Count 351 K/mm3 (150-400); RDW Coefficient Variation 14.7 % (11.7-14.2); RDW Standard Deviation 49.6 fL (35.1-46.3); Red Blood Cell Count 4.45 M/mm3 (4.30-5.90); White Blood Cell Count 8.77 K/mm3 (4.00-11.30)
[2020-07-03] MEDS ORDERED: ATOR20 PO (19:05)
[2020-07-03] MEDS ORDERED: ASPIR 8181 M1 PO (19:05)
[2020-07-03] MEDS ORDERED: CYAN500 PO (19:05)
[2020-07-03] MEDS ORDERED: CLOP75 PO (19:05)
[2020-07-03] MEDS ORDERED: DOCU100 PO (19:06)
[2020-07-03] MEDS ORDERED: FENO48 PO (19:06)
[2020-07-03] MEDS ORDERED: FERSU300 PO (19:07)
[2020-07-03] MEDS ORDERED: HYDR1TAB94 PO (19:08)
[2020-07-03] MEDS ORDERED: LOSARTAN-HCTZ1 EACH PO (19:09)
[2020-07-03] MEDS ORDERED: METF500 PO (19:09)
[2020-07-03] MEDS ORDERED: LOPE2C PO (19:09)
[2020-07-03] MEDS ORDERED: Loratadine10 MG PO (19:09)
[2020-07-03] MEDS ORDERED: XARELTO2.5 MG PO (19:10)
[2020-07-03] MEDS ORDERED: MULVITA PO (19:10)
[2020-07-03] MEDS ORDERED: SILD50TA PO (19:11)
[2020-07-03] MEDS ORDERED: Flomax0.4 MG PO (19:11)
[2020-07-03] MEDS ORDERED: HYDPAM50 PO (19:11)
[2020-07-03] MEDS ORDERED: ROPI1 PO (19:12)
[2020-07-03 19:25] LABS: Alanine Aminotransfer (ALT/SGP 15 U/L (12-78); Albumin, Blood 3.6 g/dL (3.4-5.0); Alk Phos 75 U/L (50-136); Anion Gap 13 mmol/L (6-16); Aspartate Aminotrans (AST/SGOT 15 U/L (12-37); Bilirubin, Total 0.3 mg/dL (0.1-1.0); Blood Urea Nitrogen 22 mg/dL (8-24); Bun/Creatinine Ratio 28.2 (12.0-20.0); CO2, Blood 22 mmol/L (21-32); Calcium, Blood 9.5 mg/dL (8.5-10.1); Chloride, Blood 100 mmol/L (98-108); Creatinine, Blood 0.78 mg/dL (0.60-1.20); Globulin, Blood 3.5 g/dL (2.2-4.0); Glomerular Filtration Rate >60 (60-); Glucose, Blood 104 mg/dL (70-99); Potassium, Blood 4.4 mmol/L (3.5-5.5); Sodium, Blood 135 mmol/L (136-145); Total Protein, Blood 7.1 g/dL (6.4-8.2); Troponin I <0.015 ng/mL (0.000-0.040)
== END 2020-07-03 21:05 | disposition left against medical advice (07) ==
LOC: ER 18:34
PROVIDERS: Emergency Medicine
DX: R07.9 Chest pain, unspecified (principal); R11.2 Nausea with vomiting, unspecified; R19.7 Diarrhea, unspecified; Z79.82 Long term (current) use of aspirin; Z79.899 Other long term (current) drug therapy; Z88.8 Allergy status to other drugs, medicaments and biological substances; Z88.5 Allergy status to narcotic agent; Z86.73 Personal history of transient ischemic attack (TIA), and cerebral infarction without residual deficits; F17.210 Nicotine dependence, cigarettes, uncomplicated; J44.9 Chronic obstructive pulmonary disease, unspecified; K21.9 Gastro-esophageal reflux disease without esophagitis; I10 Essential (primary) hypertension; Z86.718 Personal history of other venous thrombosis and embolism
CPT/HCPCS: 71045; 80053; 84484; 85025; 93005; 93010; 96361; 96374; 99285-25; A9270; J2405; J7030

== ENCOUNTER 2020-07-06 18:38 | Emergency (ER) | payer OTHER ==
[~2020-07-06] VITALS: Ht 170.2 cm; Wt 63.5 kg
[~2020-07-06 18:38] MED LIST changes: +ASPIR 8181 M1 PO; +Flomax0.4 MG PO; +MULVITA PO; +ROPI1 PO; +XARELTO2.5 MG PO
[2020-07-06 19:09] LABS: BASOPHILS ABSOLUTE AUTO 0.05 K/mm3 (0.00-0.23); BASOPHILS PERCENT AUTO 1 % (0-2); EOSINOPHILS ABSOLUTE AUTO 0.22 K/mm3 (0.00-0.68); EOSINOPHILS PERCENT AUTO 4 % (0-6); Hematocrit 34.8 % (37.0-53.0); Hemoglobin 11.1 g/dL (13.5-17.5); IMMATURE GRAN ABSOLUTE AUTO 0.01 K/mm3 (0.00-0.10); IMMATURE GRAN PERCENT AUTO 0 % (0-1); LYMPHOCYTES ABSOLUTE AUTO 1.44 K/mm3 (0.84-5.20); LYMPHOCYTES PERCENT AUTO 24 % (21-46); MONOCYTES ABSOLUTE AUTO 0.44 K/mm3 (0.16-1.47); MONOCYTES PERCENT AUTO 7 % (4-13); Mean Corpuscular HGB Conc 31.9 g/dL (31.5-36.5); Mean Corpuscular Volume 94 fL (80-100); NEUTROPHILS ABSOLUTE AUTO 3.89 K/mm3 (1.96-9.15); NEUTROPHILS PERCENT AUTO 64 % (41-73); Platelet Count 231 K/mm3 (150-400); RDW Coefficient Variation 15.1 % (11.7-14.2); RDW Standard Deviation 51.9 fL (35.1-46.3); White Blood Cell Count 6.05 K/mm3 (4.00-11.30)
[2020-07-06 19:17] LABS: Alanine Aminotransfer (ALT/SGP 15 U/L (12-78); Albumin, Blood 3.2 g/dL (3.4-5.0); Alk Phos 71 U/L (50-136); Anion Gap 6 mmol/L (6-16); Aspartate Aminotrans (AST/SGOT 8 U/L (12-37); Bilirubin, Total 0.2 mg/dL (0.1-1.0); Blood Urea Nitrogen 20 mg/dL (8-24); CO2, Blood 25 mmol/L (21-32); Calcium, Blood 9.2 mg/dL (8.5-10.1); Chloride, Blood 107 mmol/L (98-108); Globulin, Blood 3.3 g/dL (2.2-4.0); Glomerular Filtration Rate >60 (60-); Glucose, Blood 124 mg/dL (70-99); Potassium, Blood 3.5 mmol/L (3.5-5.5); Sodium, Blood 138 mmol/L (136-145); Total Protein, Blood 6.5 g/dL (6.4-8.2); Troponin I <0.015 ng/mL (0.000-0.040)
== END 2020-07-06 21:16 | disposition home or self-care (01) ==
LOC: ER 18:38
PROVIDERS: Emergency Medicine
DX: R55 Syncope and collapse (principal); R51.9 Headache, unspecified; E11.9 Type 2 diabetes mellitus without complications; K21.9 Gastro-esophageal reflux disease without esophagitis; Z79.84 Long term (current) use of oral hypoglycemic drugs; Z79.899 Other long term (current) drug therapy; Z79.82 Long term (current) use of aspirin; Z79.02 Long term (current) use of antithrombotics/antiplatelets; Z88.8 Allergy status to other drugs, medicaments and biological substances; Z88.5 Allergy status to narcotic agent; Z87.891 Personal history of nicotine dependence; W18.30XA Fall on same level, unspecified, initial encounter
CPT/HCPCS: 36415; 70450; 80053; 84484; 85025; 93005; 93010; 96374; 99284-25; J1885

== ENCOUNTER 2022-02-26 19:16 | Emergency (ER) | payer OTHER ==
[~2022-02-26] VITALS: Ht 170.2 cm; Wt 83.9 kg
[2022-02-26 19:50] LABS: BASOPHILS ABSOLUTE AUTO 0.05 K/mm3 (0.00-0.23); BASOPHILS PERCENT AUTO 1 % (0-2); EOSINOPHILS ABSOLUTE AUTO 0.43 K/mm3 (0.00-0.68); EOSINOPHILS PERCENT AUTO 6 % (0-6); Hematocrit 38.3 % (37.0-53.0); Hemoglobin 12.7 g/dL (13.5-17.5); IMMATURE GRAN ABSOLUTE AUTO 0.02 K/mm3 (0.00-0.10); IMMATURE GRAN PERCENT AUTO 0 % (0-1); LYMPHOCYTES ABSOLUTE AUTO 2.12 K/mm3 (0.84-5.20); LYMPHOCYTES PERCENT AUTO 28 % (21-46); MONOCYTES ABSOLUTE AUTO 0.58 K/mm3 (0.16-1.47); MONOCYTES PERCENT AUTO 8 % (4-13); Mean Corpuscular HGB 30.9 pg (26.0-34.0); Mean Corpuscular HGB Conc 33.2 g/dL (31.5-36.5); Mean Corpuscular Volume 93 fL (80-100); Mean Platelet Volume 9.8 fL (9.1-12.4); NEUTROPHILS ABSOLUTE AUTO 4.39 K/mm3 (1.96-9.15); NEUTROPHILS PERCENT AUTO 58 % (41-73); Platelet Count 278 K/mm3 (150-400); RDW Coefficient Variation 13.8 % (11.7-14.2); RDW Standard Deviation 46.7 fL (35.1-46.3); Red Blood Cell Count 4.11 M/mm3 (4.30-5.90); White Blood Cell Count 7.59 K/mm3 (4.00-11.30)
[2022-02-26 20:03] LABS: Albumin, Blood 3.8 g/dL (3.4-5.0); Albumin/Globulin Ratio 1.1 (0.8-1.8); Bilirubin, Total 0.1 mg/dL (0.1-1.0); Bun/Creatinine Ratio 15.9 (12.0-20.0); Calcium, Blood 9.2 mg/dL (8.5-10.1); Creatinine, Blood 0.88 mg/dL (0.60-1.20); Globulin, Blood 3.6 g/dL (2.2-4.0); Total Protein, Blood 7.4 g/dL (6.4-8.2)
[2022-02-26 20:20] LABS: Prothrombin Time Results 10.5 Sec (9.7-11.5)
[2022-02-26] MEDS ORDERED: ALBU2.5V5 (20:48)
[2022-02-26] MEDS ORDERED: BUPR150ER PO (20:48)
[2022-02-26] MEDS ORDERED: FLUTICASONE-SA1 EAC1 INH (20:51)
[2022-02-26] MEDS ORDERED: SERT100 PO (20:52)
[2022-02-26 21:02] LABS: Magnesium, Blood 1.7 mg/dL (1.6-2.4)
[2022-02-26 21:21] LABS: Thyroid Stimulating Hormone 1.57 uIU/mL (0.360-4.800)
[2022-02-26 23:22] LABS: Influenza A, PCR NEGATIVE (NEGATIVE); Influenza B, PCR NEGATIVE (NEGATIVE); Resp Syncytial Virus, PCR NEGATIVE (NEGATIVE)
[2022-02-26 23:51] LABS: SARS-Cov-2 (COVID-19) PCR, MMC POSITIVE (NEGATIVE)
== END 2022-02-27 00:06 | disposition home or self-care (01) ==
LOC: ER 19:16
PROVIDERS: Emergency Medicine; Student in an Organized Health Care Education/Training Program
DX: U07.1 COVID-19 (principal); I10 Essential (primary) hypertension; E11.9 Type 2 diabetes mellitus without complications; K21.9 Gastro-esophageal reflux disease without esophagitis; D50.9 Iron deficiency anemia, unspecified; N40.0 Benign prostatic hyperplasia without lower urinary tract symptoms; J44.9 Chronic obstructive pulmonary disease, unspecified; Z87.891 Personal history of nicotine dependence; Z88.5 Allergy status to narcotic agent; Z79.899 Other long term (current) drug therapy; Z79.82 Long term (current) use of aspirin; Z79.84 Long term (current) use of oral hypoglycemic drugs; Z86.73 Personal history of transient ischemic attack (TIA), and cerebral infarction without residual deficits
CPT/HCPCS: 0241U; 80053; 83735; 84443; 84484; 85025; 85610; 93005; 93010; 96374; 96375; 99284-25; A9270; J1200; J1885; J2765; J7030

== ENCOUNTER 2022-03-03 20:14 | Emergency (ER) | payer OTHER ==
[~2022-03-03] VITALS: Ht 170.2 cm; Wt 86.2 kg
[~2022-03-03 20:14] MED LIST changes: +ALBU2.5V5; +FLUTICASONE-SA1 EAC1 INH
[2022-03-03 20:40] LABS: BASOPHILS ABSOLUTE AUTO 0.07 K/mm3 (0.00-0.23); BASOPHILS PERCENT AUTO 1 % (0-2); EOSINOPHILS ABSOLUTE AUTO 0.29 K/mm3 (0.00-0.68); EOSINOPHILS PERCENT AUTO 3 % (0-6); Hematocrit 37.7 % (37.0-53.0); Hemoglobin 12.4 g/dL (13.5-17.5); IMMATURE GRAN ABSOLUTE AUTO 0.02 K/mm3 (0.00-0.10); IMMATURE GRAN PERCENT AUTO 0 % (0-1); LYMPHOCYTES ABSOLUTE AUTO 1.12 K/mm3 (0.84-5.20); LYMPHOCYTES PERCENT AUTO 11 % (21-46); MONOCYTES ABSOLUTE AUTO 0.55 K/mm3 (0.16-1.47); MONOCYTES PERCENT AUTO 5 % (4-13); Mean Corpuscular HGB 30.9 pg (26.0-34.0); Mean Corpuscular HGB Conc 32.9 g/dL (31.5-36.5); Mean Corpuscular Volume 94 fL (80-100); Mean Platelet Volume 9.8 fL (9.1-12.4); NEUTROPHILS ABSOLUTE AUTO 8.18 K/mm3 (1.96-9.15); NEUTROPHILS PERCENT AUTO 80 % (41-73); Platelet Count 235 K/mm3 (150-400); RDW Coefficient Variation 13.5 % (11.7-14.2); RDW Standard Deviation 46.9 fL (35.1-46.3); Red Blood Cell Count 4.01 M/mm3 (4.30-5.90); White Blood Cell Count 10.23 K/mm3 (4.00-11.30)
[2022-03-03 20:56] LABS: Albumin, Blood 3.7 g/dL (3.4-5.0); Albumin/Globulin Ratio 1.1 (0.8-1.8); Bilirubin, Total 0.2 mg/dL (0.1-1.0); Bun/Creatinine Ratio 19.1 (12.0-20.0); Calcium, Blood 9.3 mg/dL (8.5-10.1); Creatinine, Blood 0.79 mg/dL (0.60-1.20); Globulin, Blood 3.3 g/dL (2.2-4.0); Potassium, Blood 4.1 mmol/L (3.5-5.5)
[2022-03-03 21:49] LABS: Source, Urine Clean Catch
[2022-03-03 21:55] LABS: Appearance, Urine Clear (Clear); Bilirubin, Urine Neg (Neg); Blood, Urine 1+ (Neg); Color, Urine Amber (P-Yellow); Glucose Qualitative, Urine Neg (Neg); Ketones, Urine Neg (Neg); Leukocyte Esterase, Urine 1+ (Neg); Nitrite, Urine Neg (Neg); Protein, Urine 1+ (Neg); Specific Gravity, Urine 1.025 (1.003-1.022); Urobilinogen, Urine NORM (Normal)
[2022-03-03 22:08] LABS: Hyaline Casts 0-2 /lpf (0-2)
[2022-03-03 22:09] LABS: Bacteria Mod /hpf; Mucus Light (0-Heavy); Red Blood Cells, Urine 0-2 /hpf (0-2); Squamous Epithelial Cells Not Seen /hpf (Few)
[2022-03-04] MEDS ORDERED: ONDA4ODT MM (00:41)
== END 2022-03-04 01:11 | disposition home or self-care (01) ==
LOC: ER 20:14
PROVIDERS: Student in an Organized Health Care Education/Training Program
DX: U07.1 COVID-19 (principal); K59.00 Constipation, unspecified; E11.9 Type 2 diabetes mellitus without complications; N40.0 Benign prostatic hyperplasia without lower urinary tract symptoms; J44.9 Chronic obstructive pulmonary disease, unspecified; F17.210 Nicotine dependence, cigarettes, uncomplicated; Z88.5 Allergy status to narcotic agent; Z79.899 Other long term (current) drug therapy; Z79.82 Long term (current) use of aspirin; Z79.01 Long term (current) use of anticoagulants; Z79.84 Long term (current) use of oral hypoglycemic drugs; Z86.73 Personal history of transient ischemic attack (TIA), and cerebral infarction without residual deficits
CPT/HCPCS: 74177; 80053; 81001; 83605; 83690; 85025; 93005; 93010; 96374-59; 99284-25; A9270; J2405; J7030; Q9967

== ENCOUNTER 2022-09-18 11:17 | Emergency (ER) | payer OTHER ==
[~2022-09-18] VITALS: Ht 172.7 cm; Wt 90.7 kg
[~2022-09-18 11:17] MED LIST changes: +ONDA4ODT MM
[2022-09-18 11:41] LABS: BASOPHILS ABSOLUTE AUTO 0.04 K/mm3 (0.00-0.23); BASOPHILS PERCENT AUTO 1 % (0-2); EOSINOPHILS PERCENT AUTO 4 % (0-6); Hematocrit 37.1 % (37.0-53.0); Hemoglobin 12.5 g/dL (13.5-17.5); IMMATURE GRAN ABSOLUTE AUTO 0.02 K/mm3 (0.00-0.10); IMMATURE GRAN PERCENT AUTO 0 % (0-1); LYMPHOCYTES ABSOLUTE AUTO 1.55 K/mm3 (0.84-5.20); LYMPHOCYTES PERCENT AUTO 22 % (21-46); MONOCYTES ABSOLUTE AUTO 0.55 K/mm3 (0.16-1.47); MONOCYTES PERCENT AUTO 8 % (4-13); Mean Corpuscular HGB 31.2 pg (26.0-34.0); Mean Corpuscular HGB Conc 33.7 g/dL (31.5-36.5); Mean Corpuscular Volume 93 fL (80-100); Mean Platelet Volume 9.8 fL (9.1-12.4); NEUTROPHILS ABSOLUTE AUTO 4.73 K/mm3 (1.96-9.15); NEUTROPHILS PERCENT AUTO 66 % (41-73); Platelet Count 250 K/mm3 (150-400); RDW Coefficient Variation 13.8 % (11.7-14.2); RDW Standard Deviation 47.1 fL (35.1-46.3); Red Blood Cell Count 4.01 M/mm3 (4.30-5.90); White Blood Cell Count 7.19 K/mm3 (4.00-11.30)
[2022-09-18 11:54] LABS: Albumin, Blood 4.2 g/dL (3.4-5.0); Albumin/Globulin Ratio 1.2 (0.8-1.8); Bilirubin, Total 0.3 mg/dL (0.1-1.0); Bun/Creatinine Ratio 23.6 (12.0-20.0); Calcium, Blood 10.3 mg/dL (8.5-10.1); Creatinine, Blood 1.06 mg/dL (0.60-1.20); Globulin, Blood 3.6 g/dL (2.2-4.0); Magnesium, Blood 1.6 mg/dL (1.6-2.4); Potassium, Blood 4.4 mmol/L (3.5-5.5); Total Protein, Blood 7.8 g/dL (6.4-8.2)
[2022-09-18 12:44] LABS: Source, Urine Clean Catch
[2022-09-18 12:51] LABS: Appearance, Urine Clear (Clear); Bilirubin, Urine Neg (Neg); Blood, Urine Neg (Neg); Color, Urine Yellow (P-Yellow); Glucose Qualitative, Urine Neg (Neg); Ketones, Urine 1+ (Neg); Leukocyte Esterase, Urine 1+ (Neg); Nitrite, Urine Neg (Neg); Protein, Urine 2+ (Neg); Specific Gravity, Urine 1.025 (1.003-1.022); Urobilinogen, Urine NORM (Normal)
[2022-09-18 13:07] LABS: Bacteria Rare /hpf; Hyaline Casts 0-2 /lpf (0-2); Mucus Mod (0-Heavy); Red Blood Cells, Urine Not Seen /hpf (0-2); Squamous Epithelial Cells Few /hpf (Few)
[2022-09-18 13:57] VITALS: BP 137/62
== END 2022-09-18 14:08 | disposition home or self-care (01) ==
LOC: ER 11:17
PROVIDERS: Emergency Medicine
DX: S70.02XA Contusion of left hip, initial encounter (principal); W19.XXXA Unspecified fall, initial encounter; Z88.5 Allergy status to narcotic agent; Z79.899 Other long term (current) drug therapy; Z79.82 Long term (current) use of aspirin; E11.9 Type 2 diabetes mellitus without complications; K21.9 Gastro-esophageal reflux disease without esophagitis; J44.9 Chronic obstructive pulmonary disease, unspecified; F17.210 Nicotine dependence, cigarettes, uncomplicated
CPT/HCPCS: 36415; 70450; 73502; 80053; 81001; 83735; 85025; 93005; 93010; 96374; 99285-25; A9270; J1885